=== PATIENT | female | born 1985 | race Two or more races ===

== ENCOUNTER 2022-02-05 12:23 | Emergency (ER) | payer MEDICAID, OTHER ==
[~2022-02-05] VITALS: Ht 157.5 cm; Wt 129.7 kg
[2022-02-05 14:09] LABS: Basophils # (auto) 0.1 10 ^3/uL (0-0.2); Eosinophils # (auto) 0 10 ^3/uL (0-0.8); Monocytes # (auto) 0.6 10 ^3/uL (0-1.3); Monocytes % (auto) 5.6 % (0.0-12.0); Red Cell Distribution Width 18.1 % (11.8-14.3)
[2022-02-05 14:12] LABS: Basophils % (auto) 0.5 % (0.0-2.0); Eosinophils % (auto) 0.1 % (0.0-7.0); Hematocrit 31.1 % (36.0-46.0); Hemoglobin 10.1 g/dL (12.2-16.2); Lymphocytes # (auto) 1.7 10 ^3/uL (0.4-5.4); Lymphocytes % (auto) 15.2 % (10.0-50.0); Mean Corpuscular Hemoglobin 22.8 pg (28.0-32.0); Mean Corpuscular Hgb Conc. 32.4 g/dL (32.0-36.0); Mean Corpuscular Volume 70.4 fL (80.0-100.0); Neutrophils # (auto) 8.7 10 ^3/uL (1.6-8.6); Neutrophils % (auto) 78.6 % (37.0-80.0); Red Blood Cells 4.42 10^6/uL (4.0-5.20)
[2022-02-05 14:26] LABS: Albumin 3.1 g/dL (3.4-5.0); BUN/Creatinine Ratio 6.3; Calcium 8.2 mg/dL (8.5-10.1); Potassium 3.7 mmol/L (3.5-5.1)
[2022-02-05 14:30] LABS: Bilirubin, Total 0.5 mg/dL (0.2-1.0); Total Protein 7.8 g/dL (6.4-8.2)
[2022-02-05] MEDS ORDERED: IOHEXOL 350 MG/ML 100ML IJ ONE (16:10)
[2022-02-05] MEDS ORDERED: cefTRIAXone W LIDOCAINE 1 GM IM IM ONE (17:00)
[2022-02-05] MEDS ORDERED: CEPH-322 PO (17:02)
[2022-02-05] MEDS ORDERED: cefTRIAXone 1GM/50ML D5W 50 ML IV ONE (17:30)
[2022-02-05 19:26] VITALS: BP 145/88
== END 2022-02-05 20:27 | disposition home or self-care (01) ==
LOC: ER 12:23
DX: R10.33 Periumbilical pain (principal); D72.829 Elevated white blood cell count, unspecified; R11.2 Nausea with vomiting, unspecified; R19.7 Diarrhea, unspecified; R51.9 Headache, unspecified; Z90.49 Acquired absence of other specified parts of digestive tract; Z79.899 Other long term (current) drug therapy
CPT/HCPCS: 36415; 70450; 71275; 74176; 80053; 83690; 84702; 85025; 85379; 96365; 99285; J0696; Q9967